=== PATIENT | male | born 1985 | race Caucasian/White ===

== ENCOUNTER 2017-04-01 16:43 | Emergency (ER) | payer BC ==
[2017-04-01 17:07] VITALS: BP 153/67
--- NOTE | 2017-04-01 19:55 | UC ---
FLU HPI - HPI Summary HPI Summary: ONSET OF SUBJECTIVE FEVER, COUGH, CONGESTION, PHIPPS, MYALGIAS, FATIGUE, SCRATCHY THROAT YESTERDAY. HAS FLU A. BOTH PARENTS HAVE FLU A. UTD FLU SHOT. - History of Current Complaint Chief Complaint: UCGeneralIllness Stated Complaint: COLD Time Seen by Provider: 04/01/17 16:44 Hx Obtained From: Patient Onset/Duration: Gradual Onset, Lasting Days - 1 DAY, Still Present Severity Currently: Moderate Severity Initially: Moderate Pain Intensity: 3 Pain Scale Used: 0-10 Numeric Associated Signs & Symptoms: Positive: Fever, Myalgia, Cough, Sore Throat, Nasal Congestion, Headache - Allergy/Home Medications Allergies/Adverse Reactions: Allergies Allergy/AdvReac Type Severity Reaction Status Date / Time No Known Allergies Allergy Verified 04/01/17 17:07 PMH/Surg Hx/FS Hx/Imm Hx Endocrine History: Dyslipidemia Cardiovascular History: Hypertension - Surgical History Surgical History: None - Family History Known Family History: Positive: Hypertension - Social History Alcohol Use: Occasionally Substance Use Type: None Smoking Status (MU): Never Smoked Tobacco Review of Systems Constitutional: Fever, Chills, Fatigue ENT: Sore Throat, Nasal Discharge Respiratory: Cough Cardiovascular: Negative Gastrointestinal: Negative Musculoskeletal: Myalgia Neurological: Headache All Other Systems Reviewed And Are Negative: Yes Physical Exam Triage Information Reviewed: Yes Appearance: Well-Appearing, No Pain Distress, Well-Nourished Vital Signs: Initial Vital Signs Temp 98.0 F 04/01/17 17:04 Pulse 71 04/01/17 17:04 Resp 18 04/01/17 17:04 BP 153/67 04/01/17 17:04 Pulse Ox 99 04/01/17 17:04 Vital Signs Reviewed: Yes Eyes: Positive: Conjunctiva Clear ENT: Positive: Hearing grossly normal, Pharynx normal, TMs normal Neck: Positive: Supple, Nontender, No Lymphadenopathy Respiratory Exam: Normal Cardiovascular Exam: Normal Abdomen Description: Positive: Soft Musculoskeletal: Positive: No Edema Neurological: Positive: Alert Psychological: Positive: Normal Response To Family, Age Appropriate Behavior Skin: Negative: rashes Diagnostics - Laboratory Diagnostic Studies Completed/Ordered: FLU SWAB NEGATIVE Flu Course/Dx - Course Course Of Treatment: SWABBED POSITIVE FOR FLU A. PARENTS BOTH POSITIVE FOR FLU A. ADVISED THAT TX IS INDICATED DUE TO HIGH RISK EXPOSURE. PT WOULD LIKE SWAB STATING THAT HE AND HIS FAMILY MEMBERS WOULD LIKE TO KNOW FLU STATUS. WILL TX WITH TAMIFLU DESPITE NEG FLU SWAB GIVEN HIGH RISK EXPOSURE. - Differential Dx/Diagnosis Provider Diagnoses: INFLUENZA Discharge - Discharge Plan Condition: Stable Disposition: HOME Prescriptions: Oseltamivir CAP* [Tamiflu CAP*] 75 mg PO BID #10 cap Patient Education Materials: Influenza (ED) Referrals: No Primary Care Phys,NOPCP [Primary Care Provider] - Additional Instructions: YOUR BLOOD PRESSURE WAS ELEVATED TODAY (153/67). THIS MAY BE DUE TO YOUR ACUTE CONDITION. MONITOR AND FOLLOW-UP WITH YOUR PCP WITHIN 4 WEEKS IF IT HAS NOT RETURNED TO NORMAL. CALL THE NUMBER BELOW FOR ASSISTANCE IN ESTABLISHING WITH A PCP An additional resource available to assist in finding the appropriate physician for your health care needs is the [facility] ([facility]). You may contact them by calling [phone].
== END 2017-04-01 18:04 | disposition home or self-care (01) ==
LOC: UCEAST 16:43
DX: J11.1 Influenza due to unidentified influenza virus with other respiratory manifestations (principal); I10 Essential (primary) hypertension
CPT/HCPCS: 87502; 99202; G0463

== ENCOUNTER 2017-12-10 16:21 | Emergency (ER) | payer BC ==
[2017-12-10 17:07] VITALS: BP 143/84
--- NOTE | 2017-12-10 17:29 | UC ---
Throat Pain/Nasal Flaco HPI - HPI Summary HPI Summary: 2 days of body aches fever sweating sore throat-- - History of Current Complaint Chief Complaint: UCRespiratory Stated Complaint: FLU-LIKE SYMPTOMS,FEVER Time Seen by Provider: 12/10/17 17:22 Hx Obtained From: Patient Onset/Duration: Sudden Onset Pain Intensity: 4 Pain Scale Used: 0-10 Numeric Associated Signs & Symptoms: Positive: Fever - Allergies/Home Medications Allergies/Adverse Reactions: Allergies Allergy/AdvReac Type Severity Reaction Status Date / Time No Known Allergies Allergy Verified 12/10/17 17:04 Home Medications: Home Medications Ibuprofen TAB* [Motrin TAB* 800 MG] 800 mg PO Q6HR PRN 12/10/17 [History Confirmed 12/10/17] PMH/Surg Hx/FS Hx/Imm Hx Previously Healthy: Yes - Surgical History Surgical History: None - Family History Known Family History: Positive: Hypertension - Social History Occupation: Employed Full-time Lives: With Family Alcohol Use: Occasionally Substance Use Type: None Smoking Status (MU): Never Smoked Tobacco Review of Systems Constitutional: Fever, Chills, Fatigue Skin: Negative Eyes: Negative ENT: Negative Respiratory: Negative Cardiovascular: Negative Gastrointestinal: Negative Genitourinary: Negative Motor: Negative Neurovascular: Negative Musculoskeletal: Arthralgia Neurological: Negative Psychological: Negative Is Patient Immunocompromised?: No All Other Systems Reviewed And Are Negative: Yes Physical Exam Triage Information Reviewed: Yes Appearance: Well-Appearing, No Pain Distress, Well-Nourished Vital Signs: Initial Vital Signs Temp 97.1 F 12/10/17 16:56 Pulse 98 12/10/17 16:56 Resp 18 12/10/17 16:56 BP 143/84 12/10/17 16:56 Pulse Ox 99 12/10/17 16:56 Vital Signs Reviewed: Yes Eye Exam: Normal Eyes: Positive: Conjunctiva Clear ENT Exam: Normal ENT: Positive: Normal ENT inspection, Hearing grossly normal, Pharynx normal, TMs normal, Uvula midline. Negative: Nasal congestion, Trismus, Muffled voice, Hoarse voice, Sinus tenderness Dental Exam: Normal Neck exam: Normal Neck: Positive: Supple, Nontender Respiratory Exam: Normal Respiratory: Positive: Chest non-tender, Lungs clear, Normal breath sounds, No respiratory distress, No accessory muscle use Cardiovascular Exam: Normal Cardiovascular: Positive: RRR, No Murmur, Pulses Normal, Brisk Capillary Refill Musculoskeletal Exam: Normal Musculoskeletal: Positive: Strength Intact, ROM Intact, No Edema Neurological Exam: Normal Neurological: Positive: Alert, Muscle Tone Normal Psychological Exam: Normal Skin Exam: Normal Diagnostics - Laboratory Diagnostic Studies Completed/Ordered: influenza A/b (-), RST (-) Throat Pain/Nasal Course/Dx - Course Course Of Treatment: rest increase fluids tylenol, ibuprofen follow with pcp prn - Differential Dx/Diagnosis Provider Diagnoses: viral syndrome, elevated blood pressure without diagnosis of hypertension Discharge - Sign-Out/Discharge Documenting (check all that apply): Patient Departure All imaging exams completed and their final reports reviewed: No Studies - Discharge Plan Condition: Stable Disposition: HOME Patient Education Materials: Ibuprofen (By mouth), Fever in Adults (ED), Viral Syndrome (ED), Hypertension (ED) Referrals: [facility] [place] [facility] [Outside] - 1 Week - Billing Disposition and Condition Condition: STABLE Disposition: Home
--- NOTE | 2017-12-12 12:14 | UC ---
Discharge - Sign-Out/Discharge Documenting (check all that apply): Post-Discharge Follow Up All imaging exams completed and their final reports reviewed: No Studies - Discharge Plan Disposition: HOME Patient Education Materials: Ibuprofen (By mouth), Fever in Adults (ED), Viral Syndrome (ED), Hypertension (ED) Referrals: [facility] [place] [facility]ERR[facility] [Outside] - 1 Week - Billing Disposition and Condition Disposition: Home
== END 2017-12-10 18:01 | disposition home or self-care (01) ==
LOC: UCEAST 16:21
DX: B34.9 Viral infection, unspecified (principal); R03.0 Elevated blood-pressure reading, without diagnosis of hypertension; Z82.49 Family history of ischemic heart disease and other diseases of the circulatory system
CPT/HCPCS: 87651; 99211; G0463

== ENCOUNTER 2018-07-30 09:19 | Emergency (ER) | payer BC, OTHER ==
[2018-07-30 09:31] VITALS: BP 152/94
--- NOTE | 2018-07-30 09:47 | UC ---
Epistaxis Nasal HPI - HPI Summary HPI Summary: Woke up at 1AM with cramping, diarrhea, went to bathroom, got up from toilet, and then passed out. Woke up on bathroom floor, had hit his nose, laceration. put dermaglue on, thinks nose is broken. - History of Current Complaint Chief Complaint: UCLaceration Stated Complaint: NOSE LAC Time Seen by Provider: 07/30/18 09:27 Hx Obtained From: Patient Onset/Duration: Sudden Onset, Lasting Hours Timing: Constant Severity Initially: Moderate Severity Currently: Moderate Pain Intensity: 3 Aggravating Factor(s): Nasal Trauma Alleviating Factor(s): Ice Associated Signs And Symptoms: Positive: Bruising, Sinus Pain - Allergies/Home Medications Allergies/Adverse Reactions: Allergies Allergy/AdvReac Type Severity Reaction Status Date / Time No Known Allergies Allergy Verified 07/30/18 09:31 PMH/Surg Hx/FS Hx/Imm Hx Previously Healthy: Yes - Surgical History Surgical History: None - Family History Known Family History: Positive: Hypertension - Social History Alcohol Use: Occasionally Substance Use Type: None Smoking Status (MU): Never Smoked Tobacco - Immunization History Most Recent Tetanus Shot: 2014 Review of Systems All Other Systems Reviewed And Are Negative: Yes Constitutional: Positive: Negative Skin: Positive: Other - small lac to bridge of nose Eyes: Positive: Negative ENT: Positive: Sinus Congestion, Other - nose pain Respiratory: Positive: Shortness Of Breath Cardiovascular: Positive: Negative Gastrointestinal: Positive: Negative Genitourinary: Positive: Negative Motor: Positive: Negative Neurovascular: Positive: Negative Musculoskeletal: Positive: Negative Neurological: Positive: Negative Psychological: Positive: Negative Is Patient Immunocompromised?: No Physical Exam Triage Information Reviewed: Yes Appearance: Well-Appearing, Well-Nourished, Pain Distress Vital Signs: Initial Vital Signs Temp 97.8 F 07/30/18 09:25 Pulse 72 07/30/18 09:25 Resp 16 07/30/18 09:25 BP 152/94 07/30/18 09:25 Pulse Ox 100 07/30/18 09:25 Vital Signs Reviewed: Yes Eye Exam: Normal Eyes: Positive: Other: - PERRLA, EOMI ENT: Positive: Pharyngeal erythema, Nasal congestion, TMs normal, Other - nose is swollen, lac has been cleaned, glued and steristriped, blood clot in right nare Neck exam: Normal Respiratory Exam: Normal Cardiovascular Exam: Normal Abdominal Exam: Normal Abdomen Description: Positive: Nontender, No Organomegaly, Soft Musculoskeletal Exam: Normal Neurological Exam: Normal Neurological: Positive: Other: - NEG rhomberg Psychological Exam: Normal Skin: Positive: Significant Lesion(s) - lacertation of nose Epistaxis Nasal Course/Dx - Course Course Of Treatment: hx obtained, exam performed ,meds reviewed, CT of face obtained, COMMINUTED FRACTURES OF THE NASAL BONES BILATERALLY. referred to ENT. No further treatment at this time. - Differential Dx/Diagnosis Differential Diagnosis/HQI/PQRI: Allergic Rhinitis, Sinusitis, Trauma Provider Diagnosis: Fracture of nasal bones Discharge - Sign-Out/Discharge Documenting (check all that apply): Patient Departure All imaging exams completed and their final reports reviewed: No Studies - Discharge Plan Condition: Stable Disposition: HOME Prescriptions: Amoxicillin PO (*) [Amoxicillin 500 MG CAP*] 500 mg PO Q12H #14 cap Patient Education Materials: Nasal Fracture (ED) Referrals: No Primary Care Phys,NOPCP [Primary Care Provider] - Thompson Covington MD [Medical Doctor] - Additional Instructions: use ice and ibuprofen for pain and swelling. Follow up with ENT - Billing Disposition and Condition Condition: STABLE Disposition: Home - Attestation Statements Provider Attestation: I was available for consult. This patient was seen by the ROSE. The patient was not presented to , seen by or examined by in -Marysol Hernandez MD
== END 2018-07-30 10:22 | disposition home or self-care (01) ==
LOC: UCEAST 09:19
DX: S02.2XXA Fracture of nasal bones, initial encounter for closed fracture (principal); S01.21XA Laceration without foreign body of nose, initial encounter; R19.7 Diarrhea, unspecified; R55 Syncope and collapse; R06.02 Shortness of breath; W18.30XA Fall on same level, unspecified, initial encounter; Y92.002 Bathroom of unspecified non-institutional (private) residence as the place of occurrence of the external cause
CPT/HCPCS: 70486; 99212; G0463

== ENCOUNTER 2018-08-02 07:05 | Emergency (ER) | payer BC ==
[2018-08-02 07:23] VITALS: BP 150/85
[2018-08-02] MEDS ORDERED: Lidocaine 1%* 5 ML VIAL INJ ONE (07:23)
[2018-08-02] MEDS ORDERED: Amoxicillin PO (*) 500 MG CAP PO ONE (07:23)
--- NOTE | 2018-08-02 13:32 | UC ---
Laceration HPI - HPI Summary HPI Summary: PATIENT HAD WHAT SOUNDS LIKE AN EPISODE OF VASOVAGAL SYNCOPE ABOUT 3 NIGHTS AGO. LANDED ON HIS FACE ON THE BATHROOM FLOOR AND SUSTAINED A COMMINUTED FRACTURE OF HIS NOSE AND A SMALL LACERATION TO THE BRIDGE OF HIS NOSE. STERI- STRIPS WERE APPLIED AT HOME. HE CAME TO THE THE NEXT DAY AND HAD CT SCAN OF HIS FACIAL BONES DONE AND WAS PRESCRIBED ANTIBIOTICS TO COVER FOR HIS OPEN FRACTURE. PATIENT COMES INTO THE UC TODAY STATING THAT THE STERI-STRIPS CAME OFF AND THE WOUND STARTED TO OOZE BLOOD. PATIENT IS CURRENTLY TAKING AMOXICILLIN TWICE DAILY GIVEN THAT HE HAS AN OPEN FRACTURE AND IS SCHEDULED TO FOLLOW UP WITH ENT TOMORROW. - History Of Current Complaint Chief Complaint: UCGeneralIllness Stated Complaint: WOUND CHECK Time Seen by Provider: 08/02/18 07:13 Hx Obtained From: Patient Laceration Location: Face - NOSE Mechanism Of Injury: Blunt Trauma Onset/Duration: Sudden Onset, Lasting Days, Still Present Severity: Mild Pain Intensity: 0 Pain Scale Used: 0-10 Numeric - Allergies/Home Medications Allergies/Adverse Reactions: Allergies Allergy/AdvReac Type Severity Reaction Status Date / Time No Known Allergies Allergy Verified 07/30/18 09:31 PMH/Surg Hx/FS Hx/Imm Hx Previously Healthy: Yes - Surgical History Surgical History: None - Family History Known Family History: Positive: Hypertension - Social History Alcohol Use: Occasionally Substance Use Type: None Smoking Status (MU): Never Smoked Tobacco - Immunization History Most Recent Tetanus Shot: 2014 Review of Systems All Other Systems Reviewed And Are Negative: Yes Constitutional: Positive: Negative Skin: Positive: Other - LACERATION BRIDGE OF NOSE Respiratory: Positive: Negative Cardiovascular: Positive: Negative Gastrointestinal: Positive: Negative Physical Exam Triage Information Reviewed: Yes Appearance: Well-Appearing, No Pain Distress, Well-Nourished Vital Signs: Initial Vital Signs Temp 98.6 F 08/02/18 07:15 Pulse 64 08/02/18 07:15 Resp 16 08/02/18 07:15 BP 150/85 08/02/18 07:15 Pulse Ox 100 08/02/18 07:15 Vital Signs Reviewed: Yes Eyes: Positive: Conjunctiva Clear ENT: Positive: Hearing grossly normal Neck: Positive: Supple Respiratory: Positive: No respiratory distress, No accessory muscle use Cardiovascular: Positive: Pulses Normal Musculoskeletal: Positive: No Edema Neurological: Positive: Alert Psychological: Positive: Age Appropriate Behavior Skin: Positive: Other - 7MM OPEN WOUND BRIDGE OF NOSE WITH BLOOD OOZING Laceration Repair - Laceration Repair 1 Description: Linear Laceration Size After Repair: Length (cm) - 0.7CM, Width (mm) - 0MM, Depth (mm) - 2MM Modified For Repair: No Anesthesia Used: 1.0% Lido Cleansing Completed Via Routine Prep: Yes Closure Material: Sutures - 3 SIMPLE INTERRUPTED Closure Method: Single Layer Suture Of: Skin Suture Type: Prolene - 6-0 Laceration Course/Dx - Course/Dx Course Of Treatment: ALTHOUGH WOUND IS SEVERAL DAYS OLD IT STARTED ACTIVELY OOZING BLOOD WHEN STERISTRIPS WERE PULLED OFF TODAY. NO SIGN OF INFECTION. AREA WAS THOROUGHLY CLEANED AND EDGES WERE APPROXIMATED. 3 SIMPLE INTERRUPTED SUTURES WERE PLACED TO HOLD THE SKIN EDGES TOGETHER. PATIENT ADVISED TO KEEP HIS ENT FOLLOW-UP TOMORROW. CONTINUE HIS ANTIBIOTICS TWICE DAILY PRESCRIBED. HE DID FORGET TO TAKE HIS DOSE THIS MORNING SO ONE DOSE OF AMOXICILLIN WAS GIVEN WHILE IN THE OFFICE. - Diagnosis Provider Diagnosis: Laceration of nose Discharge - Sign-Out/Discharge Documenting (check all that apply): Patient Departure All imaging exams completed and their final reports reviewed: No Studies - Discharge Plan Condition: Stable Disposition: HOME Patient Education Materials: Laceration (ED) Referrals: [facility] [Outside] - 2 Weeks Additional Instructions: APPLY THIN LAYER ANTIBIOTIC OINTMENT UNDER BANDAGE FOR FIRST 3-4 DAYS. CHANGE BANDAGE DAILY AND NEEDED IF IT BECOMES SOILED OR WET. SEEK FOLLOW-UP IF YOU DEVELOP SPREADING REDNESS OF THE SKIN, PURULENT DRAINAGE, FEVER, INCREASED PAIN OR ANY OTHER CONCERNING SYMPTOMS. RETURN TO HAVE YOUR SUTURES REMOVED IN 10 DAYS CONTINUE YOUR ANTIBIOTICS PRESCRIBED AND KEEP YOUR ENT FOLLOW-UP TOMORROW. CALL THE NUMBER BELOW FOR ASSISTANCE IN ESTABLISHING WITH A PCP An additional resource available to assist in finding the appropriate physician for your health care needs is the [facility]erral Center ([facility]). You may contact them by calling [phone]. - Billing Disposition and Condition Condition: STABLE Disposition: Home
== END 2018-08-02 08:12 | disposition home or self-care (01) ==
LOC: UCEAST 07:05
DX: S01.21XD Laceration without foreign body of nose, subsequent encounter (principal); S02.2XXD Fracture of nasal bones, subsequent encounter for fracture with routine healing; W18.30XD Fall on same level, unspecified, subsequent encounter
CPT/HCPCS: 12011; 99211; A9270-GY; G0463

== ENCOUNTER 2019-02-23 14:54 | Emergency (ER) | payer BC ==
[2019-02-23 15:05] VITALS: BP 135/77
--- NOTE | 2019-02-23 15:40 | UC ---
Throat Pain/Nasal Flaco HPI - HPI Summary HPI Summary: 33 year old male with no pMH presents with throat pain x ~ 1 day. no cough, no fever. + fatigue. + all over achy feeling. + loose stools x 1 day. no ear pain. + dysphagia - History of Current Complaint Chief Complaint: UCRespiratory Stated Complaint: THROAT PAIN Time Seen by Provider: 02/23/19 15:39 Hx Obtained From: Patient Onset/Duration: Sudden Onset, Lasting Days, Still Present Severity: Moderate Pain Intensity: 4 Pain Scale Used: 0-10 Numeric Cough: None Associated Signs & Symptoms: Positive: Dysphagia. Negative: Hoarseness, Sinus Discomfort, Nasal Discharge, Fever, Vomiting, Rash - Allergies/Home Medications Allergies/Adverse Reactions: Allergies Allergy/AdvReac Type Severity Reaction Status Date / Time No Known Allergies Allergy Verified 02/23/19 15:05 PMH/Surg Hx/FS Hx/Imm Hx Previously Healthy: Yes - Surgical History Surgical History: None - Family History Known Family History: Positive: Hypertension, Non-Contributory - Social History Occupation: Employed Full-time Alcohol Use: Occasionally Substance Use Type: None Smoking Status (MU): Never Smoked Tobacco - Immunization History Most Recent Tetanus Shot: 2014 Review of Systems All Other Systems Reviewed And Are Negative: Yes Constitutional: Positive: Chills, Fatigue ENT: Positive: Sore Throat. Negative: Ear Ache, Nasal Discharge, Sinus Congestion, Sinus Pain/Tenderness Respiratory: Negative: Shortness Of Breath, Cough Gastrointestinal: Positive: Diarrhea Neurological: Positive: Negative Psychological: Positive: Negative Is Patient Immunocompromised?: No Physical Exam Triage Information Reviewed: Yes Appearance: No Pain Distress, Well-Nourished, Ill-Appearing - mild Vital Signs: Initial Vital Signs Temp 97.5 F 02/23/19 15:02 Pulse 81 02/23/19 15:02 Resp 18 02/23/19 15:02 BP 135/77 02/23/19 15:02 Pulse Ox 99 02/23/19 15:02 Vital Signs Reviewed: Yes Eyes: Positive: Conjunctiva Clear ENT: Positive: Pharyngeal erythema - minimal, TMs normal, Uvula midline. Negative: TM bulging, TM dull, TM red, Tonsillar swelling, Tonsillar exudate, Sinus tenderness Neck: Positive: Supple, Nontender, No Lymphadenopathy. Negative: Nuchal Rigidity, Enlarged Nodes @ - no posterior/ cervical LAD Skin Exam: Normal Throat Pain/Nasal Course/Dx - Course Course Of Treatment: rapid strep: negative - Increase fluid intake - Over the counter medications as needed for pain - Return with increased symptoms, pain, fever > 102. - Differential Dx/Diagnosis Differential Diagnosis/HQI/PQRI: Peritonsillar Abscess, Sinusitis, URI Provider Diagnosis: Pharyngitis Discharge ED - Sign-Out/Discharge Documenting (check all that apply): Patient Departure All imaging exams completed and their final reports reviewed: No Studies - Discharge Plan Condition: Good Disposition: HOME Patient Education Materials: Pharyngitis (ED) Referrals: [facility] [Outside] No Primary Care Phys,NOPCP [Primary Care Provider] - Additional Instructions: - Increase fluid intake - Over the counter medications as needed for pain - Return with increased symptoms, pain, fever > 102. - Billing Disposition and Condition Condition: GOOD Disposition: Home
== END 2019-02-23 16:07 | disposition home or self-care (01) ==
LOC: UCEAST 14:54
DX: J02.9 Acute pharyngitis, unspecified (principal)
CPT/HCPCS: 87651; 99211; G0463